=== PATIENT | male | born 1995 | race Caucasian/White ===

== ENCOUNTER 2017-01-23 15:55 | Emergency (ER) | payer OTHER ==
[2017-01-23 16:32] LABS: URINE BILIRUBIN NEGATIVE (NEGATIVE); URINE BLOOD TRACE (NEGATIVE); URINE GLUCOSE (UA) NORMAL (NORMAL); URINE KETONE NEGATIVE (NEGATIVE); URINE LEUKOCYTE ESTERASE NEGATIVE (NEGATIVE); URINE NITRATE NEGATIVE (NEGATIVE); URINE PROTEIN NEGATIVE (NEGATIVE); UROBILINOGEN NORMAL mg/dL (<1.0)
[2017-01-23 16:48] LABS: URINE BACTERIA FEW (NONE SEEN)
== END 2017-01-23 17:22 | disposition home or self-care (01) ==
LOC: ER 15:55
PROVIDERS: Emergency Medicine
DX: N20.1 Calculus of ureter (principal); R10.9 Unspecified abdominal pain; R11.2 Nausea with vomiting, unspecified; Z87.442 Personal history of urinary calculi; F17.210 Nicotine dependence, cigarettes, uncomplicated; Z88.0 Allergy status to penicillin
CPT/HCPCS: 81001; 96372; 99283-25

== ENCOUNTER 2017-04-19 06:46 | Emergency (ER) | payer OTHER ==
[2017-04-19 07:14] LABS: URINE BACTERIA TRACE (NONE SEEN); URINE BILIRUBIN NEGATIVE (NEGATIVE); URINE BLOOD 1+ (NEGATIVE); URINE GLUCOSE (UA) NORMAL (NORMAL); URINE KETONE NEGATIVE (NEGATIVE); URINE LEUKOCYTE ESTERASE TRACE (NEGATIVE); URINE NITRATE NEGATIVE (NEGATIVE); URINE PROTEIN NEGATIVE (NEGATIVE); URINE RBC TNTC /[HPF] (0-2); URINE SQUAMOUS EPITHELIAL CELL 0-10 /[HPF] (NONE SEEN); URINE WBC 0-5 /[HPF] (0-3); UROBILINOGEN NORMAL mg/dL (<1.0)
== END 2017-04-19 10:20 | disposition home or self-care (01) ==
LOC: ER 06:46
PROVIDERS: General Practice
DX: N39.0 Urinary tract infection, site not specified (principal); R31.9 Hematuria, unspecified; K59.00 Constipation, unspecified; R10.9 Unspecified abdominal pain; Z87.442 Personal history of urinary calculi; F17.210 Nicotine dependence, cigarettes, uncomplicated; Z88.0 Allergy status to penicillin
CPT/HCPCS: 74150; 80307; 81001; 96372; 99284-25